=== PATIENT | female | born 1985 | race Caucasian/White ===

== ENCOUNTER → 2016-07-08 | Outpatient (CLI) | payer OTHER | LOC: MOB LAB 10:59 | PROVIDERS: ATTEND Family Medicine | DX: Z36 Encounter for antenatal screening of mother (principal); Z3A.35 35 weeks gestation of pregnancy | CPT/HCPCS: 87150 ==

== ENCOUNTER → 2016-07-15 | Outpatient (CLI) | payer OTHER ==
--- NOTE | 2016-07-15 14:07 | DI ---
US OB , LIMITED,07/15/2016 12:57 PM: Clinical History: The uterus and size date discrepancy. Previous Exam: March 23, 2016 and December 25, 2015 Findings: Multiple images are obtained through the pelvis demonstrating a normal amniotic fluid index (12.4 cm) . Detected Doppler heart tones measured 121 beats per minute. SD ratios measured between 2.8 and 3.0. The placenta is posterior and grade 2 without definite defects. The estimated gestational age was determined by a composite of biparietal diameter, head circumferenc e, abdominal circumference and femur length yielding an estimated gestational age by ultrasound of 35 weeks 4 days. Estimated weight was 2674 g (20 percentile). Impression: Single live intrauterine gestation with size equal to dates. Estimated gestational age is 9 days behind gestational age by last menstrual period. This is within m argin of error.
== END ==
LOC: US 12:52
PROVIDERS: ATTEND Family Medicine
DX: O26.843 Uterine size-date discrepancy, third trimester (principal); Z3A.36 36 weeks gestation of pregnancy
CPT/HCPCS: 76815

== ENCOUNTER 2016-07-28 18:16 | Inpatient (IN) | payer OTHER ==
[2016-07-28] MEDS ORDERED: TERBUTALINE SULFATE 1 MG/1 ML SDV SUBCUT PRN (18:48)
[2016-07-28] MEDS ORDERED: LIDOCAINE W/ SODIUM BICARB 0.5 ML SYR SUBD PRN (18:48)
[2016-07-28] MEDS ORDERED: OXYTOCIN 10 UNIT/1 ML IM PRN (18:48)
[2016-07-28] MEDS ORDERED: diphenhydrAMINE 50 MG/1 ML VIAL IVP PRN (18:48)
[2016-07-28] MEDS ORDERED: CALCIUM CARBONATE 500 MG (TUMS) CHEWABLE TABLET PO PRN (18:48)
[2016-07-28] MEDS ORDERED: Phenylephrine Inj 50 MCG in Normal Saline Flush 0.5 ML IVP PRN (18:48)
[2016-07-28] MEDS ORDERED: METHYLERGONOVINE MALEATE 0.2 MG/1 ML VIAL IM PRN (18:48)
[2016-07-28] MEDS ORDERED: MISOPROSTOL 200 MCG TABLET RECTAL PRN (18:48)
[2016-07-28] MEDS ORDERED: CITRIC ACID/SODIUM CITRATE 30 ML CUP PO PRN (18:48)
[2016-07-28] MEDS ORDERED: CefOXitin Inj 2 GM in Sodium Chloride 0.9% 100 ML IV PRN (18:48)
[2016-07-28] MEDS ORDERED: ONDANSETRON 4 MG/2 ML VIAL IVP PRN (18:48)
[2016-07-28] MEDS ORDERED: Nalbuphine Inj 20 MG/ML Ampule IVP PRN (18:48)
[2016-07-28] MEDS ORDERED: BUTORPHANOL TARTRATE 2 MG/1 ML VIAL IVP PRN (18:48)
[2016-07-28] MEDS ORDERED: Famotidine Inj 20 MG in Normal Saline Flush 10 ML IVP PRN ×4 (18:48)
[2016-07-28] MEDS ORDERED: NALOXONE 0.4 MG/1 ML VIAL IVP PRN (18:48)
[2016-07-28] MEDS ORDERED: Metoclopramide Inj 10 MG/2 ML VIAL IV PRN (18:48)
[2016-07-28] MEDS ORDERED: NORMAL SALINE 10 ML SYRINGE FLUSH IVP PRN ×2 (18:48→20:11)
[2016-07-28] MEDS ORDERED: Lidocaine 1% 10 MG/ML - 20 ML VIAL SUBCUT PRN (18:48)
[2016-07-28] MEDS ORDERED: Naloxone Inj 0.01 MG in Normal Saline Flush 1 ML IVP PRN (18:48)
[2016-07-28] MEDS ORDERED: Carboprost Inj 250 MCG/ML AMP IM PRN (18:48)
[2016-07-28] MEDS ORDERED: fentaNYL Inj 100 MCG/2 ML VIAL IV PRN (18:48)
[2016-07-28] MEDS ORDERED: Oxytocin 20 Units + LR 1,000 ML IV SCH (19:00)
[2016-07-28] MEDS: Lactated Ringers-OB Dept 1,000 ML PRIMARY IV SCH ×3 (19:05→20:45)
[2016-07-28] MEDS ORDERED: Fent/Bupiv 2mcg/0.0625% Epid 250 ML ONE (19:22)
[2016-07-28 19:26] LABS: HEMATOCRIT 39.6 % (37.0-47.0); HEMOGLOBIN 13.7 g/dL (12.0-16.0); MEAN CORPUSCULAR HEMOGLOBIN 32.2 PG (27-31); MEAN CORPUSCULAR HGB CONC 34.6 g/dL (33-37); MEAN PLATELET VOLUME 10.3 FL (7.4-12.2); RDW COEFFICIENT OF VARIATION 13.6 % (11.5-14.5); RED BLOOD COUNT 4.26 10^6/uL (4.20-5.40); WHITE BLOOD COUNT 25.77 10^3/uL (4.8-10.8)
[2016-07-28] MEDS: ePHEDrine Inj 5 MG in Normal Saline Flush 1 ML IVP PRN ×2 (19:56→20:10)
--- NOTE | 2016-07-28 20:12 | CRNA.PROCE ---
Central Neuraxis Block Placemt - - Safety Measures: Time Out Taken, Site Verified - - Type of Block: Epidural Reason for Block: Analgesia Moniters Used During Block: SPO2, NIBP Positioning: Sitting Skin Prep Used: Betadine Draped: Yes Skin Infiltration - Enter Amount Used in Comment Field: 1% Xylocaine (mL): Yes Spinal Needle Used: 18 Hustead 80 mm Local Anesthetic - Enter Amount Used in Comment Field: 5.0 % Xylocaine with Dextrose (ml): Yes (5ml test dose) Number of Centimeters Catheter Threaded: 3 Bioclusive Dressing Applied: Yes - - Additional Details: Laboratory Results 07/28/16 Range/Units 19:24 WBC 25.77 H (4.8-10.8) 10^3/uL RBC 4.26 (4.20-5.40) 10^6/uL Hgb 13.7 (12.0-16.0) g/dL Hct 39.6 (37.0-47.0) % MCV 93.0 (81-99) FL MCH 32.2 H (27-31) PG MCHC 34.6 (33-37) g/dL RDW Std Deviation 45.1 (39-50) fL RDW Coeff of Chiqui 13.6 (11.5-14.5) % Plt Count 312 (140-350) 10*3/uL MPV 10.3 (7.4-12.2) FL Vital Signs (Last 8 hours) Temp Pulse Resp BP Pulse Ox 07/28/16 18:50 97.7 F 58 L 16 110/68 100
[2016-07-28] MEDS ORDERED: Lactated Ringers 1,000 ML PRIMARY IV SCH (20:15)
--- NOTE | 2016-07-28 22:14 | OB.PROGRES ---
Date and Time of Service: 07/28/16 @ 2150 Interval History: Clotilde is a 31 yo at 38 5/7 weeks who presented to labor and delivery after she began nanda at home around 0300 this morning. She denies vag bleeding or gushes of fluid. Baby has been moving normally. She states that her contractions are now about 2-3 minutes apart. Objective - Cervical Exam Cervical Exam: /-1 Baxter: moderate contractions every 4-5 minutes currently. Heart Rate: 135, moderate variability; occasional variable and early decels. Heart Rate Interpretation Category: Category II - Labs CBC and BMP: 07/28/16 19:24 Labs - Last 24 Hours: Laboratory Results 07/28/16 Range/Units 19:24 WBC 25.77 H (4.8-10.8) 10^3/uL RBC 4.26 (4.20-5.40) 10^6/uL Hgb 13.7 (12.0-16.0) g/dL Hct 39.6 (37.0-47.0) % MCV 93.0 (81-99) FL MCH 32.2 H (27-31) PG MCHC 34.6 (33-37) g/dL RDW Std Deviation 45.1 (39-50) fL RDW Coeff of Chiqui 13.6 (11.5-14.5) % Plt Count 312 (140-350) 10*3/uL MPV 10.3 (7.4-12.2) FL - Vital Signs Last Taken Vital Signs: Vital Signs - Last Taken Temperature 97.7 F 07/28/16 19:00 Pulse Rate 58 L 07/28/16 19:00 Respiratory Rate 16 07/28/16 19:00 Blood Pressure 110/68 07/28/16 19:00 Pulse Ox 100 07/28/16 19:00 Assessment and Plan - Patient Problems (1) Labor established Current Visit: Yes Status: Acute - Assessment / Plan Additional Assessment/Plan Details: -GBS negative. -pt very comfortable with epidural. -amniotomy complete with return of clear fluid; with augment as baby tolerates as needed. -anticipate normal vaginal delivery.
[2016-07-29] MEDS ORDERED: Oxytocin 20 Units + LR 1,000 ML IV SCH ×2 (00:30→04:10)
[2016-07-29] MEDS: Lactated Ringers-OB Dept 1,000 ML PRIMARY IV SCH ×2 (00:33→04:07)
--- NOTE | 2016-07-29 02:45 | OB.DEL.SUM ---
Delivery Note Delivery Summary: Pt is a 31 yo G2 now P1 at 38 5/7 weeks by first trimester u/s who presented in labor this evening at 6 cm. Amniotomy was completed with clear fluid after an epidural was placed for pain control. The baby had multiple early, variable and occasionally late decelerations which precluded the use of pitocin to augment her labor as she stalled at 8 cm for several hours. After the pt was in knee- chest position for an hour, baby did seem to do better with regards to his FHT tracing. Pitocin augmentation was initiated at 0022 at 1 mU. She was complete at 0145 and began pushing a short time later. A viable male was born over an intact perineum at 0207. There was a body cord and loops of umbilical cord around extremities, which were all reduced after delivery of the baby. The nose and mouth were suctioned with the bulb suction and the cord was doubly clamped by myself. The cord was cut by the father of the baby. Baby was placed on mom's chest. Cord gases and cord blood were obtained for analysis. The placenta delivered spontaneously and intact with a 3 vessel cord at 0212. 20 mU of pitocin were infused wide open with excellent hemostasis. The vagina and perineum were examined and a second degree perineal laceration was noted and repaired in the normal fashion with 3-0 vicryl rapide suture. A rectal exam confirmed intact mucosa and no aberrantly placed sutures. Apgars were 9 at 1 minute and 9 at 5 minutes. Baby weighed 5#4.9 oz and was 19 inches long. Both mom and baby tolerated delivery well and are in stable condition at this time. EBL 150 cc. - Patient Problems (1) Labor established Current Visit: Yes Status: Acute
[2016-07-29] MEDS ORDERED: Methylergonovine Tab 0.2 MG TAB PO PRN (04:10)
[2016-07-29] MEDS ORDERED: diphenhydrAMINE 25 MG CAPSULE PO PRN (04:10)
[2016-07-29] MEDS ORDERED: ACETAMINOPHEN 325 MG TABLET PO PRN (04:10)
[2016-07-29] MEDS ORDERED: NORMAL SALINE 10 ML SYRINGE FLUSH IVP PRN (04:10)
[2016-07-29] MEDS ORDERED: ONDANSETRON 4 MG/2 ML VIAL IVP PRN (04:10)
[2016-07-29] MEDS ORDERED: OXYTOCIN 10 UNIT/1 ML IM ONE (04:10)
[2016-07-29] MEDS ORDERED: Nalbuphine Inj 20 MG/ML Ampule IVP PRN (04:10)
[2016-07-29] MEDS ORDERED: Carboprost Inj 250 MCG/ML AMP IM PRN (04:10)
[2016-07-29] MEDS ORDERED: CALCIUM CARBONATE 500 MG (TUMS) CHEWABLE TABLET PO PRN (04:10)
[2016-07-29] MEDS ORDERED: BENZOCAINE/MENTHOL SPRAY 56 GM BOTTLE TOPICAL PRN (04:10)
[2016-07-29] MEDS ORDERED: MISOPROSTOL 200 MCG TABLET RECTAL ONE (04:10)
[2016-07-29] MEDS ORDERED: DIPH,PERTUSS,TET(ADACEL) VAC/PF 0.5 ML (Tdap) IM SCH (04:10)
[2016-07-29] MEDS ORDERED: Ondansetron ODT Tab 4 MG TAB PO PRN (04:10)
[2016-07-29] MEDS ORDERED: diphenhydrAMINE 50 MG/1 ML VIAL IVP PRN (04:10)
[2016-07-29] MEDS ORDERED: METHYLERGONOVINE MALEATE 0.2 MG/1 ML VIAL IM PRN (04:10)
[2016-07-29] MEDS ORDERED: HYDROcodone-APAP 5 MG -325 MG TABLET PO PRN (04:10)
[2016-07-29] MEDS ORDERED: GLYCERIN/WITCH HAZEL 1 BOX TOPICAL PRN (04:10)
[2016-07-29] MEDS: IBUPROFEN 800 MG TABLET PO PRN ×3 (05:13→21:29)
[2016-07-29] MEDS: DOCUSATE 100 MG CAPSULE PO SCH ×2 (10:18→21:30)
--- NOTE | 2016-07-29 10:36 | CRNA.PROGR ---
Anesthesia Note Anesthesia Progress Note: Vaginal delivery at 0207. Epidural dc'd by OB RN, see note. She is currently ambulatory in the nursery with spouse and the baby. Discussed GUERITA analgesia expectations and she has no questions or concerns at this time regarding her epidural for GUERITA. Laboratory Results 07/28/16 Range/Units 19:24 WBC 25.77 H (4.8-10.8) 10^3/uL RBC 4.26 (4.20-5.40) 10^6/uL Hgb 13.7 (12.0-16.0) g/dL Hct 39.6 (37.0-47.0) % MCV 93.0 (81-99) FL MCH 32.2 H (27-31) PG MCHC 34.6 (33-37) g/dL RDW Std Deviation 45.1 (39-50) fL RDW Coeff of Chiqui 13.6 (11.5-14.5) % Plt Count 312 (140-350) 10*3/uL MPV 10.3 (7.4-12.2) FL Vital Signs (24 hrs) Temp Pulse Pulse Resp BP BP Pulse Ox 07/29/16 09:33 97.8 F 59 L 18 108/62 96 07/29/16 05:17 97.9 F 57 L 16 106/59 99 07/29/16 03:15 98.3 F 65 16 100/58 94 07/29/16 02:45 78 16 105/54 99 07/29/16 02:30 73 16 113/60 98 07/29/16 02:19 76 16 108/64 98 07/29/16 01:00 66 16 110/52 07/29/16 00:15 98.7 F 74 16 105/49 07/28/16 23:00 100 07/28/16 22:45 63 16 114/58 98 07/28/16 22:00 57 L 16 106/52 99 07/28/16 21:00 60 16 117/62 99 07/28/16 19:00 97.7 F 58 L 16 110/68 100 07/28/16 18:50 97.7 F 58 L 16 110/68 100
[2016-07-30 05:19] LABS: HEMATOCRIT 33.4 % (37.0-47.0); MEAN CORPUSCULAR HEMOGLOBIN 31.4 PG (27-31); MEAN CORPUSCULAR HGB CONC 32.9 g/dL (33-37); MEAN PLATELET VOLUME 10.1 FL (7.4-12.2); RDW COEFFICIENT OF VARIATION 13.8 % (11.5-14.5); RED BLOOD COUNT 3.5 10^6/uL (4.20-5.40); WHITE BLOOD COUNT 20.35 10^3/uL (4.8-10.8)
[2016-07-30] MEDS: IBUPROFEN 800 MG TABLET PO PRN (07:05)
[2016-07-30 07:19] VITALS: RESP 20
[2016-07-30] MEDS ORDERED: Prenatal Multivitamin Tab 1 TAB TAB PO SCH (09:00)
[2016-07-30] MEDS: DOCUSATE 100 MG CAPSULE PO SCH (09:03)
[2016-07-30 15:12] VITALS: TEMP 98
--- NOTE | 2016-07-30 22:17 | OB.PROGRES ---
Subjective Post Day: 1 Pain Management: PO Munoz Catheter: No Flatus: Yes Diet: Regular [place] Feeding Method: Formula Feeding Ambulating: Yes Concerns / Additional Information: States that her perineum is a little sore, but not too bad. Denies any other concerns. Objective - General General Appearance: POSITIVE: No Acute Distress, Cooperative - Cardiovacular Cardiovascular Exam: POSITIVE: RRR, No Murmur Edema: No Pedal Edema Extremities: Negative Conor's - Bilaterally - Respiratory Respiratory Exam: POSITIVE: Clear to Auscultation - Bilaterally, Breathing Non Labored Assesstment / Plan (1) (spontaneous vaginal delivery) Status: Acute Assessment / Plan: -routine cares. -discussed care of breasts since she is not nursing. -rh negative--baby is B-, so will not need rhogam. -rubella immune. -pt requesting discharge home.
== END 2016-07-30 15:15 | disposition home or self-care (01) | DRG 775 ==
LOC: OBOP 18:16 → OBIP 18:48
PROVIDERS: ADMIT Family Medicine; ATTEND Family Medicine
PROC: 10E0XZZ Delivery of Products of Conception, External Approach (ICD-10-PCS; principal; 2016-07-29)
PROC: 0KQM0ZZ Repair Perineum Muscle, Open Approach (ICD-10-PCS; 2016-07-29)
DX: O70.1 Second degree perineal laceration during delivery (principal); Z37.0 Single live birth; Z3A.38 38 weeks gestation of pregnancy
CPT/HCPCS: 36415; 81003; 85027; J3010; J3490; J7120